=== PATIENT | female | born 1970 | race Caucasian/White ===

== ENCOUNTER 2021-01-26 20:27 | Emergency (ER) | payer SELFPAY ==
[~2021-01-26] VITALS: Ht 165.1 cm; Wt 81.6 kg
[2021-01-26 21:44] VITALS: BP 126/79
[2021-01-26] MEDS ORDERED: IBUP-1955 PO (23:21)
--- NOTE | 2021-01-26 23:30 | NUR ---
Patient discharged to home in stable condition. Written and verbal after care instructions given. Patient verbalizes understanding of instruction. Pt ambulatory with a steady gait
== END 2021-01-26 23:32 | disposition home or self-care (01) ==
LOC: ER 20:34
DX: S93.505A Unspecified sprain of left lesser toe(s), initial encounter (principal); W01.0XXA Fall on same level from slipping, tripping and stumbling without subsequent striking against object, initial encounter; Y93.01 Activity, walking, marching and hiking; Y92.89 Other specified places as the place of occurrence of the external cause; Y99.8 Other external cause status
CPT/HCPCS: 73630-TC

== ENCOUNTER 2021-02-06 13:19 | Emergency (ER) | payer SELFPAY ==
[~2021-02-06] VITALS: Ht 165.1 cm; Wt 81.6 kg
[~2021-02-06 13:19] MED LIST: IBUP-1955 PO
[2021-02-06 13:26] VITALS: BP 113/84
--- NOTE | 2021-02-06 13:27 | NUR ---
TO ER BED 3, C/O RIGHT KNEE PAIN S/P FALLING FROM STAIRS 2WKS AGO, ABLE TO BEND KNEE, AAOX3, BREATHING EVEN AND NON LABORED
--- NOTE | 2021-02-06 13:50 | NUR ---
DR FOWLER AT BEDSIDE FOR EVAL
[2021-02-06] MEDS ORDERED: IBUP-1955 PO (14:56)
--- NOTE | 2021-02-06 15:18 | NUR ---
Patient discharged to home in stable condition. Written and verbal after care instructions given. Patient verbalizes understanding of instruction.
== END 2021-02-06 15:20 | disposition home or self-care (01) ==
LOC: EDUNIT# 13:19 → ER 13:23
DX: M25.561 Pain in right knee (principal); R22.41 Localized swelling, mass and lump, right lower limb
CPT/HCPCS: 73564-TC

== ENCOUNTER 2024-08-26 10:35 | Emergency (ER) | payer SELFPAY ==
[~2024-08-26] VITALS: Ht 162.6 cm; Wt 68.0 kg
[2024-08-26] MEDS ORDERED: BACI/NEOM/POLY B OINT PKT 1 UDPKT PACKET ONE (11:46)
[2024-08-26] MEDS ORDERED: TDAP [DIPH/PERTUSSIS/TET] 0.5 ML VIAL IM ONE (11:46)
[2024-08-26] MEDS ORDERED: CHLO473M5 PO (11:49)
[2024-08-26] MEDS: BACI/NEOM/POLY B OINT PKT 1 UDPKT PACKET TP ONE (11:52)
[2024-08-26] MEDS: TDAP [DIPH/PERTUSSIS/TET] 0.5 ML VIAL IM ONE (11:53)
[2024-08-26] MEDS ORDERED: IBUP-1955 PO (12:18)
[2024-08-26] MEDS ORDERED: HYDR-4303 PO (12:18)
[2024-08-26 12:23] VITALS: BP 118/76; TEMP 98.7; O2SAT 97
== END 2024-08-26 12:23 | disposition home or self-care (01) ==
LOC: ER 10:42
DX: S01.512A Laceration without foreign body of oral cavity, initial encounter (principal); R51.9 Headache, unspecified; Z79.1 Long term (current) use of non-steroidal anti-inflammatories (NSAID); Z79.899 Other long term (current) drug therapy; W01.0XXA Fall on same level from slipping, tripping and stumbling without subsequent striking against object, initial encounter; Y93.89 Activity, other specified; Y92.89 Other specified places as the place of occurrence of the external cause; Y99.8 Other external cause status
CPT/HCPCS: 99283; 90471; 90715; A6403